=== PATIENT | female | born 1960 | race Caucasian/White ===

== ENCOUNTER 2016-07-30 15:56 | Emergency (ER) | payer BC, MEDICAID ==
[~2016-07-30] VITALS: Ht 157.5 cm; Wt 79.0 kg
[~2016-07-30 15:56] MED LIST: ACET1TAB40 PO; ASPI-676 PO; AZIT250T94 PO; BENA5TAB2 PO; CEPH-443 PO; CEPH500C PO; CIPR500T4 PO; CLOT45CR19 VAG; D-ME473S18 PO; FLUC150T17 PO; GLIP5TAB13 PO; HYDR-3498 PO; HYDR-3720 PO; IBUP-1542 PO; IBUP400T22 PO; MTF1000T PO; NAPR-260 PO; ONDA4TAB35 PO; ONDA4TAB8 PO; PHEN-538 PO
[2016-07-30 15:58] VITALS: Ht 157.5 cm; Wt 79.0 kg
[2016-07-30] MEDS ORDERED: FAMOTIDINE 20 MG TAB PO STA (17:41)
--- NOTE | 2016-07-30 17:45 | ERD ---
ER Documentation Chief Complaint Date/Time DATE: 07/30/16 TIME: 17:42 Chief Complaint dizziness , feels palpitations ,chest pain , nausea since last night HPI Patient is a 56-year-old female who presents with sudden onset, constant, dull, waxing and waning epigastric pain since 9 PM last night. She states that the pain has never completely resolved since it started. She states that the pain started while she was eating. She vomited once. She reports having one loose stool last night and a normal stool today. She denies dark stools. She denies fevers, shortness of breath. She reports an acid taste in her mouth. She reports being diagnosed with gallstones 4 months ago. ROS All systems reviewed and are negative except as per history of present illness. Medications Home Meds Active Scripts Famotidine* (Famotidine*) 20 Mg Tablet, 20 MG PO DAILY, #30 TAB Prov:HERMINIO RAMESH MD 07/30/16 Reported Medications Metformin Hcl* (Metformin Hcl*) 500 Mg Tablet, 500 MG PO BID, #30 TAB 07/30/16 Benazepril Hcl* (Benazepril Hcl*) 5 Mg Tablet, 5 MG PO DAILY, #30 TAB 07/30/16 Glipizide* (Glipizide*) 5 Mg Tablet, 5 MG PO BID, TAB 07/30/16 Aspirin* (Aspirin* Chew) 81 Mg Tab.chew, 81 MG PO DAILY, TAB.CHEW 07/30/16 Discontinued Reported Medications Aspirin (Ashley Child) 81 Mg Chew, 81 MG PO 03/11/11 Discontinued Scripts Dextromethorphan Hb-Promethazine Hcl (Promethazine DM Syrup) 473 Ml Syrup, 5 ML PO Q6H Y for COUGH, #4 OZ Prov:GERSON ENRIQUEZ MD 10/25/15 Ibuprofen* (Motrin*) 600 Mg Tab, 600 MG PO Q6, #15 TAB Prov:GERSON ENRIQUEZ MD 10/25/15 Azithromycin* (Zithromax*) 250 Mg Tablet, 250 MG PO .ZPACK DIRECTED, #6 TAB TAKE 500 MG (2 TABS) THE FIRST DAY THEN 250 MG (1 TAB) DAYS 2-5 Prov:GERSON ENRIQUEZ MD 10/25/15 Fluconazole* (Diflucan*) 150 Mg Tablet, 150 MG PO ONCE, #1 TAB Prov:DAPHNIE DUMONT NP 09/15/15 Clotrimazole* (Clotrimazole-7*) Vaginal Cream..g., 1 APPLIC VAG HS for 7 Days, EA Prov:DAPHNIE DUMONT NP 09/15/15 Hydrocodone Bit-Acetaminophen* ([place]*) 5-325 Mg Tab, 1 TAB PO Q6 Y for PAIN, # 20 TAB Prov:DAPHNIE DUMONT NP 09/15/15 Phenazopyridine Hcl* (Pyridium*) 200 Mg Tab, 200 MG PO TID Y for URINARY PAIN, # 6 TAB Prov:DAPHNIE DUMONT NP 09/15/15 Ciprofloxacin Hcl* (Ciprofloxacin Hcl*) 500 Mg Tablet, 500 MG PO BID for 7 Days , TAB Prov:DAPHNIE DUMONT NP 09/15/15 Acetaminophen-Codeine* (Acetaminophen-Cod #3*) 300-30 Mg Tab, 1 TAB PO Q4H Y for PAIN, #12 TAB Prov:GERSON ENRIQUEZ MD 07/25/15 Cephalexin* (Keflex*) 500 Mg Capsule, 500 MG PO QID for 7 Days, CAP Prov:GERSON ENRIQUEZ MD 07/25/15 Ondansetron Hcl* (Zofran* ODT) 4 mg -ODT Tab.disper, 4 MG PO Q6 Y for NAUSEA AND /OR VOMITING, #10 TAB Prov:DEJA WAGONER DO 05/08/15 Hydrocodone Bit-Acetaminophen* ([place]*) 7.5-325 Tablet, 1 TAB PO Q4H Y for PAIN , #14 TAB Prov:DEJA WAGONER DO 05/08/15 Ondansetron Hcl* (Zofran*) 4 Mg Tablet, 4 MG PO TID for NAUSEA AND/OR VOMITING, #12 TAB Prov:LEXA GOMEZ MD 04/25/15 Cephalexin* (Cephalexin*) 500 Mg Capsule, 500 MG PO TID, #21 CAP Prov:LEXA GOMEZ MD 04/25/15 Glipizide* (Glipizide*) 5 Mg Tablet, 5 MG PO BID, #30 TAB Prov:JUNIOR CHAPA PA-C 03/14/15 Metformin* (Glucophage*) 1,000 Mg Tablet, 1000 MG PO BID, #30 TAB Prov:JUNIOR CHAPA PA-C 03/14/15 Hydrocodone Bit-Acetaminophen* ([place]*) 5-325 Mg Tab, 1 TAB PO Q6 Y for PAIN, # 7 TAB Prov:ANNA OWLFE DO 10/03/14 Naproxen* (Naprosyn*) 500 Mg Tablet, 500 MG PO BID Y for PAIN AND/OR INFLAMMATION, #20 TAB Prov:ANNA WOLFE DO 10/03/14 Ibuprofen* (Ibuprofen*) 400 Mg Tablet, 400 MG PO Q6H Y for PAIN, #30 TAB Prov:TRIPP HUSAIN MD 09/02/14 Metformin* (Glucophage*) 1,000 Mg Tablet, 1000 MG PO BID, #60 TAB 4 Refills Prov:TRIPP HUSAIN MD 09/02/14 Glipizide* (Glipizide*) 5 Mg Tablet, 5 MG PO BID, #60 TAB 2 Refills Prov:TRIPP HUSAIN MD 09/02/14 Benazepril Hcl* (Benazepril Hcl*) 5 Mg Tab, 5 MG PO DAILY, #30 TAB 2 Refills Prov:TRIPP HUSAIN MD 09/02/14 Allergies Allergies: Coded Allergies: No Known Drug Allergies (Verified Allergy, Unknown, 09/14/15) PMhx/Soc Past medical history: Diabetes, hypertension Past surgical history: Hysterectomy Social history: Denies tobacco or alcohol History of Surgery: Yes (hysterectomy) Anesthesia Reaction: No Hx Neurological Disorder: No Hx Respiratory Disorders: No Hx Cardiac Disorders: Yes (HTN) Hx Psychiatric Problems: No Hx Miscellaneous Medical Probl: Yes (dm, htn) Hx Alcohol Use: No Hx Substance Use: No Hx Tobacco Use: No Smoking Status: Never smoker FmHx Family History: No coronary disease, No diabetes Physical Exam Vitals Vital Signs Date Time Temp Pulse Resp B/P Pulse Ox O2 Delivery O2 Flow Rate FiO2 07/30/16 20:14 79 16 106/65 100 Room Air 07/30/16 18:38 98.3 79 18 117/53 99 Room Air 07/30/16 15:58 97.9 90 18 135/63 98 Physical Exam Const: Alert, no acute distress Head: Atraumatic Eyes: Normal Conjunctiva, no pallor, no icterus ENT: Normal External Ears, Nose and Mouth. Moist mucous membranes Neck: Full range of motion..~ No meningismus. No JVD Resp: Clear to auscultation bilaterally, no wheezes, no rales Cardio: Regular rate and rhythm, no murmurs Abd: Soft, non distended. Mild tenderness in the epigastrium and right upper quadrant, no guarding, no rebound Skin: No petechiae or rashes Back: No midline or flank tenderness, no CVA tenderness Ext: No cyanosis, or edema Neur: Awake and alert Psych: Normal Mood and Affect Result Diagram: 07/30/16182007/30/161820 Results 24 hrs Laboratory Tests Test 07/30/16 18:21 07/30/16 19:40 White Blood Count 12.110^3/ul Red Blood Count 4.3210^6/ul Hemoglobin 13.4g/dl Hematocrit 39.8% Mean Corpuscular Volume 92.1fl Mean Corpuscular Hemoglobin 31.0pg Mean Corpuscular Hemoglobin Concent 33.7g/dl Red Cell Distribution Width 13.2% Platelet Count 01736^3/UL Mean Platelet Volume 11.4fl Neutrophils % 61.3% Lymphocytes % 28.2% Monocytes % 5.7% Eosinophils % 3.8% Basophils % 0.7% Nucleated Red Blood Cells % 0.0/100WBC Neutrophils # 7.410^3/ul Lymphocytes # 3.410^3/ul Monocytes # 0.710^3/ul Eosinophils # 0.510^3/ul Basophils # 0.110^3/ul Nucleated Red Blood Cells # 0.010^3/ul Prothrombin Time 12.7Sec Prothrombin Time Ratio 1.0 INR International Normalized Ratio 0.95 Sodium Level 143mmol/L Potassium Level 4.0mmol/L Chloride Level 106mmol/L Carbon Dioxide Level 26mmol/L Anion Gap 15 Blood Urea Nitrogen 14mg/dl Creatinine 0.60mg/dl Glucose Level 128mg/dl Calcium Level 9.6mg/dl Total Bilirubin 0.3mg/dl Direct Bilirubin 0.00mg/dl Indirect Bilirubin 0.3mg/dl Aspartate Amino Transf (AST/SGOT) 63IU/L Alanine Aminotransferase (ALT/SGPT) 111IU/L Alkaline Phosphatase 109IU/L Troponin I < 0.012ng/ml Total Protein 7.6g/dl Albumin 4.6g/dl Globulin 3.00g/dl Albumin/Globulin Ratio 1.53 Lipase 98U/L Serum HCG, Qualitative NEGATIVE Urine Color LT. YELLOW Urine Clarity CLEAR Urine pH 6.5 Urine Specific [place] 1.015 Urine Ketones NEGATIVE Urine Nitrite NEGATIVE Urine Bilirubin NEGATIVE Urine Urobilinogen 0.2 E.U./dL Urine Leukocyte Esterase TRACE Urine Microscopic RBC 2-5/HPF Urine Microscopic WBC 2-5/HPF Urine Squamous Epithelial Cells FEW Urine Bacteria RARE Urine Hemoglobin 1+ Urine Glucose NEGATIVE% Urine Total Protein NEGATIVE Current Medications Medications (Trade) Dose Ordered Sig/Jak Route PRN Reason Start Time Stop Time Status Last Admin Dose Admin Famotidine (Pepcid) 20 mg ONCE STAT PO 07/30/16 17:41 07/30/16 17:42 DC 07/30/16 17:41 Procedures/MDM EKG read by me: Time 1603, rate 84 Rhythm: Normal sinus [place]: Left axis deviation Intervals: Normal ST-T waves: no ischemic changes Ectopy: No Q-waves: No Impression: No evidence of ischemia or arrhythmia MDM: Patient is a 56-year-old female who presents with epigastric pain since last night. She reports symptoms that are highly suggestive of GERD. Her pain is been constant since onset. She has no evidence of ischemia on EKG and negative troponin. Her LFTs are unremarkable except for mild elevation of ALT greater than AST. Review of the patient's chart shows hepatic steatosis on a CT scan during a visit 2 years ago. The patient reports a history of gallstones , but on ultrasound has no evidence of gallstones or other biliary disease. The patient does have evidence of ongoing hepatic steatosis. The patient was given Pepcid in the ER, and states that her symptoms have completely resolved. Her symptoms are consistent with a GI cause. I have advised her to return to the ER for worsening symptoms and otherwise to follow-up with her PMD. I will prescribe her Pepcid. I have advised her to eat a low-fat diet. Departure Diagnosis: Primary Impression: Hepatic steatosis Additional Impressions: Gastritis Gastritis type: unspecified gastritis Chronicity: acute Gastritis bleeding : without bleeding Qualified Code: K29.00 - Acute gastritis without hemorrhage, unspecified gastritis type GERD (gastroesophageal reflux disease) Esophagitis presence: esophagitis presence not specified Qualified Code: K21.9 - Gastroesophageal reflux disease, esophagitis presence not specified Condition: HERMINIO Colbert MD Jul 30, 2016 17:45
[2016-07-30] MEDS ORDERED: ASPI81TA3 PO (17:48)
[2016-07-30] MEDS ORDERED: GLIP5TAB13 PO (17:48)
[2016-07-30] MEDS ORDERED: METF500T4 PO (17:50)
[2016-07-30] MEDS ORDERED: BENA5TAB2 PO (17:50)
--- NOTE | 2016-07-30 18:13 | RADRPT ---
PROCEDURE: XR Chest. CLINICAL INDICATION: Abdominal Pain. Chest pain. TECHNIQUE: Single frontal chest x-ray. COMPARISON: 04/25/2015 FINDINGS: The lungs are clear of acute infiltrates, edema, effusions, or masses.. The cardiomediastinal silho uette is unremarkable. The osseous structures are intact. IMPRESSION: No acute cardiopulmonary disease. RPTAT: QQ .Henry Dozier MD, MD Date Time Electronically viewed and signed by .Henry Dozier MD, on 07/30/2016 18:12 .L/
--- NOTE | 2016-07-30 18:19 | RADRPT ---
PROCEDURE: US Abdomen (right upper quadrant). CLINICAL INDICATION: Right upper quadrant pain TECHNIQUE: Multiple real-time longitudinal and transverse images of the right upper quadrant of th e abdomen were acquired utilizing a curved array transducer. Images were reviewed on a high-resoluti on PACS workstation. COMPARISON: None FINDINGS: The liver is normal in size and fatty in echogenicity without focal mass or intrahepatic biliary dil atation. The gallbladder is normal. The common bile duct measures 3.5 mm in maximal dimension. Th e visualized portions of the pancreas are unremarkable with obscuration of the tail of the pancreas. No free fluid is identified. The right kidney measures 11.3 cm in length. There is no evidence of obstructive uropathy or urolith iasis. No renal masses seen. Visualized portions aorta and inferior vena cava are normal. IMPRESSION: Hepatic steatosis. Otherwise unremarkable right upper quadrant ultrasound. RPTAT: QQ .Henry Dozier MD, MD Date Time Electronically viewed and signed by .Henry Dozier MD, on 07/30/2016 18:19 .L/
[2016-07-30 18:38] VITALS: TEMP 98.3
[2016-07-30 18:43] LABS: ADD SCAN DIFF NO
[2016-07-30 18:45] LABS: BASOPHIL # 0.1 10^3/ul (0.0-0.1); BASOPHILS % 0.7 % (0.0-2.0); EOSINOPHILS # 0.5 10^3/ul (0.0-0.5); EOSINOPHILS % 3.8 % (0.0-7.0); HEMATOCRIT 39.8 % (37.0-47.0); HEMOGLOBIN 13.4 g/dl (12.0-16.0); LYMPHOCYTES # 3.4 10^3/ul (0.8-2.9); LYMPHOCYTES % 28.2 % (15.0-51.0); MEAN CORPUSCULAR HGB CONC 33.7 g/dl (32.0-37.0); MEAN CORPUSCULAR VOLUME 92.1 fl (82.0-101.0); MEAN PLATELET VOLUME 11.4 fl (7.4-10.4); MONOCYTE # 0.7 10^3/ul (0.3-0.9); MONOCYTES % 5.7 % (0.0-11.0); NEUTROPHIL # 7.4 10^3/ul (1.6-7.5); NEUTROPHILS % 61.3 % (39.0-77.0); PLATELET COUNT 315 10^3/UL (140-415); RED BLOOD COUNT 4.32 10^6/ul (4.20-5.40); RED CELL DISTRIBUTION WIDTH 13.2 % (11.5-14.5); WHITE BLOOD COUNT 12.1 10^3/ul (4.8-10.8)
[2016-07-30 19:04] LABS: INR 0.95; PROTIME 12.7 Sec (12.2-14.2)
[2016-07-30 19:09] LABS: ALANINE AMINOTRANSFERASE 111 IU/L (13-69); ALBUMIN 4.6 g/dl (3.3-4.9); ALBUMIN/GLOBULIN RATIO 1.53; ALKALINE PHOSPHATASE 109 IU/L (42-121); ANION GAP 15 (8-16); ASPARTATE AMINO TRANSFERASE 63 IU/L (15-46); BILIRUBIN,INDIRECT 0.3 mg/dl (0-1.1); BILIRUBIN,TOTAL 0.3 mg/dl (0.2-1.3); BLOOD UREA NITROGEN 14 mg/dl (7-20); CALCIUM 9.6 mg/dl (8.4-10.2); CARBON DIOXIDE 26 mmol/L (21-31); CHLORIDE 106 mmol/L (97-110); GLUCOSE 128 mg/dl (70-220); SODIUM 143 mmol/L (135-144); TOTAL PROTEIN 7.6 g/dl (6.1-8.1)
[2016-07-30 19:24] LABS: TROPONIN-I < 0.012 ng/ml (0.00-0.12)
[2016-07-30] MEDS ORDERED: FAMO20TA18 PO (19:43)
[2016-07-30 19:54] LABS: ADD UMIC YES; URINE BILIRUBIN (Dip) NEGATIVE (NEGATIVE); URINE BLOOD (Dip) 1+ (NEGATIVE); URINE COLOR LT. YELLOW (YELLOW); URINE GLUCOSE (Dip) NEGATIVE (NEGATIVE); URINE KETONES (Dip) NEGATIVE (NEGATIVE); URINE LEUKOCYTE ESTERASE (Dip) TRACE (NEGATIVE); URINE NITRITE (Dip) NEGATIVE (NEGATIVE); URINE TOTAL PROTEIN (Dip) NEGATIVE (NEGATIVE); URINE UROBILINOGEN (Dip) 0.2 E.U./dL (0.1-1.0)
[2016-07-30 20:14] VITALS: BP 106/65; PULSE 79; RESP 16
[2016-07-30 20:25] LABS: BACTERIA,URINE RARE; SQUAMOUS EPITHELIAL CELL,UR FEW
== END 2016-07-30 20:16 | disposition home or self-care (01) ==
LOC: E/R 15:56
DX: K76.0 Fatty (change of) liver, not elsewhere classified (principal); K29.00 Acute gastritis without bleeding; K21.9 Gastro-esophageal reflux disease without esophagitis
CPT/HCPCS: 71010; 76705; 80053; 81001; 83690; 84484; 84703; 85025; 85610; Z7610; 36415; 93005

== ENCOUNTER 2016-08-03 18:13 | Emergency (ER) | payer MEDICAID ==
[~2016-08-03] VITALS: Ht 160 cm; Wt 79.5 kg
[~2016-08-03 18:13] MED LIST changes: -ACET1TAB40 PO; -ASPI-676 PO; +ASPI81TA3 PO; -AZIT250T94 PO; -CEPH-443 PO; -CEPH500C PO; -CIPR500T4 PO; -CLOT45CR19 VAG; -D-ME473S18 PO; +FAMO20TA18 PO; -FLUC150T17 PO; -HYDR-3498 PO; -HYDR-3720 PO; -IBUP-1542 PO; -IBUP400T22 PO; +METF500T4 PO; -MTF1000T PO; -NAPR-260 PO; -ONDA4TAB35 PO; -ONDA4TAB8 PO; -PHEN-538 PO
[2016-08-03 18:26] VITALS: Ht 160 cm; Wt 79.5 kg
[2016-08-03] MEDS ORDERED: KETOROLAC 15 MG INJ IV STA (20:13)
--- NOTE | 2016-08-03 20:13 | ERD ---
ER Documentation Chief Complaint Date/Time DATE: 08/03/16 TIME: 20:13 Chief Complaint abd pain, cough x 3 days, headache , insomnia HPI 56-year-old female history of diabetes, hypertension and dyslipidemia presents the ED with multiple symptoms including generalized body pain, abdominal pain, sore throat, cough, headache and insomnia. Patient with multiple previous visits for similar symptoms most recently 07/30/2016. Ongoing, mild, burning, epigastric abdominal pain without nausea, vomiting, diarrhea, constipation, hematemesis, hematochezia or melanotic stools. Generalized, gradual onset, mild headache which he has chronically. Nonproductive cough but no shortness of breath, orthopnea or exertional dyspnea. Denies leg pain or swelling. Mild odynophagia but no dysphagia. No rhinorrhea or nasal congestion. No fevers or chills. ROS All systems reviewed and are negative except as per history of present illness. Medications Home Meds Reported Medications Simvastatin* (Zocor*) 5 Mg Tablet, 5 MG PO QHS, #30 TAB 08/03/16 Metformin Hcl* (Metformin Hcl*) 500 Mg Tablet, 500 MG PO BID, #30 TAB 07/30/16 Benazepril Hcl* (Benazepril Hcl*) 5 Mg Tablet, 5 MG PO DAILY, #30 TAB 07/30/16 Glipizide* (Glipizide*) 5 Mg Tablet, 5 MG PO BID, TAB 07/30/16 Aspirin* (Aspirin* Chew) 81 Mg Tab.chew, 81 MG PO DAILY, TAB.CHEW 07/30/16 Discontinued Reported Medications Aspirin (Ashley Child) 81 Mg Chew, 81 MG PO 03/11/11 Discontinued Scripts Famotidine* (Famotidine*) 20 Mg Tablet, 20 MG PO DAILY, #30 TAB Prov:HERMINIO RAMESH MD 07/30/16 Dextromethorphan Hb-Promethazine Hcl (Promethazine DM Syrup) 473 Ml Syrup, 5 ML PO Q6H Y for COUGH, #4 OZ Prov:GERSON ENRIQUEZ MD 10/25/15 Ibuprofen* (Motrin*) 600 Mg Tab, 600 MG PO Q6, #15 TAB Prov:GERSON ENRIQUEZ MD 10/25/15 Azithromycin* (Zithromax*) 250 Mg Tablet, 250 MG PO .DianaPACK DIRECTED, #6 TAB TAKE 500 MG (2 TABS) THE FIRST DAY THEN 250 MG (1 TAB) DAYS 2-5 Prov:GERSON ENRIQUEZ MD 10/25/15 Fluconazole* (Diflucan*) 150 Mg Tablet, 150 MG PO ONCE, #1 TAB Prov:DAPHNIE DUMONT NP 09/15/15 Clotrimazole* (Clotrimazole-7*) Vaginal Cream..g., 1 APPLIC VAG HS for 7 Days, EA Prov:DAPHNIE DUMONT NP 09/15/15 Hydrocodone Bit-Acetaminophen* ([place]*) 5-325 Mg Tab, 1 TAB PO Q6 Y for PAIN, # 20 TAB Prov:DAPHNIE DUMONT NP 09/15/15 Phenazopyridine Hcl* (Pyridium*) 200 Mg Tab, 200 MG PO TID Y for URINARY PAIN, # 6 TAB Prov:DAPHNIE DUMONT NP 09/15/15 Ciprofloxacin Hcl* (Ciprofloxacin Hcl*) 500 Mg Tablet, 500 MG PO BID for 7 Days , TAB Prov:DAPHNIE DUMONT NP 09/15/15 Acetaminophen-Codeine* (Acetaminophen-Cod #3*) 300-30 Mg Tab, 1 TAB PO Q4H Y for PAIN, #12 TAB Prov:GERSON ENRIQUEZ MD 07/25/15 Cephalexin* (Keflex*) 500 Mg Capsule, 500 MG PO QID for 7 Days, CAP Prov:GERSON ENRIQUEZ MD 07/25/15 Ondansetron Hcl* (Zofran* ODT) 4 mg -ODT Tab.disper, 4 MG PO Q6 Y for NAUSEA AND /OR VOMITING, #10 TAB Prov:PAULINA WAGONERSTWENCESLAOS ALacy DO 05/08/15 Hydrocodone Bit-Acetaminophen* ([place]*) 7.5-325 Tablet, 1 TAB PO Q4H Y for PAIN , #14 TAB Prov:PAULINA WAGONERSTOLOS A. DO 05/08/15 Ondansetron Hcl* (Zofran*) 4 Mg Tablet, 4 MG PO TID for NAUSEA AND/OR VOMITING, #12 TAB Prov:LEXA GOMEZ MD 04/25/15 Cephalexin* (Cephalexin*) 500 Mg Capsule, 500 MG PO TID, #21 CAP Prov:LEXA GOMEZ MD 04/25/15 Glipizide* (Glipizide*) 5 Mg Tablet, 5 MG PO BID, #30 TAB Prov:JUNIOR CHAPA PA-C 03/14/15 Metformin* (Glucophage*) 1,000 Mg Tablet, 1000 MG PO BID, #30 TAB Prov:JUNIOR CHAPA PA-C 03/14/15 Hydrocodone Bit-Acetaminophen* ([place]*) 5-325 Mg Tab, 1 TAB PO Q6 Y for PAIN, # 7 TAB Prov:ANNA WOLFE DO 10/03/14 Naproxen* (Naprosyn*) 500 Mg Tablet, 500 MG PO BID Y for PAIN AND/OR INFLAMMATION, #20 TAB Prov:ANNA WOLFE DO 10/03/14 Ibuprofen* (Ibuprofen*) 400 Mg Tablet, 400 MG PO Q6H Y for PAIN, #30 TAB Prov:TRIPP HUSAIN MD 09/02/14 Metformin* (Glucophage*) 1,000 Mg Tablet, 1000 MG PO BID, #60 TAB 4 Refills Prov:TRIPP HUSAIN MD 09/02/14 Glipizide* (Glipizide*) 5 Mg Tablet, 5 MG PO BID, #60 TAB 2 Refills Prov:TRIPP HUSAIN MD 09/02/14 Benazepril Hcl* (Benazepril Hcl*) 5 Mg Tab, 5 MG PO DAILY, #30 TAB 2 Refills Prov:TRIPP HUSAIN MD 09/02/14 Allergies Allergies: Coded Allergies: No Known Drug Allergies (Verified Allergy, Unknown, 08/03/16) PMhx/Soc Reviewed in chart. History of Surgery: Yes (hysterectomy) Anesthesia Reaction: No Hx Neurological Disorder: No Hx Respiratory Disorders: No Hx Cardiac Disorders: Yes (HTN) Hx Psychiatric Problems: No Hx Miscellaneous Medical Probl: Yes (dm, htn) Hx Alcohol Use: No Hx Substance Use: No Hx Tobacco Use: No FmHx Reviewed in chart. As per HPI. No stroke or cancer Physical Exam Vitals Vital Signs Date Time Temp Pulse Resp B/P Pulse Ox O2 Delivery O2 Flow Rate FiO2 08/03/16 18:26 99.3 105 20 125/71 97 Physical Exam Const: Alert, anxious Head: Atraumatic Eyes: Normal Conjunctiva ENT: Normal External Ears, Nose and Mouth. Pharynx is clear without erythema or exudate. Neck: Full range of motion. Nontender. No JVD. No lymphadenopathy or tenderness. Resp: Clear to auscultation bilaterally Cardio: Regular rate and rhythm, no murmurs Abd: Soft, obese. Mild epigastric tenderness but no rebound or guarding. No masses or abnormal pulsations. Bowel sounds are normal. Skin: No petechiae or rashes Back: No midline or flank tenderness Ext: No cyanosis, or edema Neur: Awake and alert Psych: Patient appears anxious but not depressed. Result Diagram: 08/03/16202408/03/162024 Results 24 hrs Laboratory Tests Test 08/03/16 20:22 08/03/16 20:25 Urine Color LT. YELLOW Urine Clarity CLEAR Urine pH 7.5 Urine Specific [place] 1.010 Urine Ketones NEGATIVE Urine Nitrite NEGATIVE Urine Bilirubin NEGATIVE Urine Urobilinogen 0.2 E.U./dL Urine Leukocyte Esterase NEGATIVE Urine Microscopic RBC 0-2/HPF Urine Microscopic WBC 0-2/HPF Urine Squamous Epithelial Cells FEW Urine Bacteria RARE Urine Hemoglobin 1+ Urine Glucose NEGATIVE% Urine Total Protein NEGATIVE White Blood Count 11.010^3/ul Red Blood Count 4.5310^6/ul Hemoglobin 13.5g/dl Hematocrit 41.3% Mean Corpuscular Volume 91.2fl Mean Corpuscular Hemoglobin 29.8pg Mean Corpuscular Hemoglobin Concent 32.7g/dl Red Cell Distribution Width 13.2% Platelet Count 04608^3/UL Mean Platelet Volume 11.1fl Neutrophils % 60.5% Lymphocytes % 23.6% Monocytes % 9.1% Eosinophils % 5.8% Basophils % 0.5% Nucleated Red Blood Cells % 0.0/100WBC Neutrophils # 6.710^3/ul Lymphocytes # 2.610^3/ul Monocytes # 1.010^3/ul Eosinophils # 0.610^3/ul Basophils # 0.110^3/ul Nucleated Red Blood Cells # 0.010^3/ul Sodium Level 138mmol/L Potassium Level 4.1mmol/L Chloride Level 101mmol/L Carbon Dioxide Level 27mmol/L Anion Gap 14 Blood Urea Nitrogen 14mg/dl Creatinine 0.65mg/dl Glucose Level 136mg/dl Calcium Level 9.5mg/dl Total Bilirubin 0.5mg/dl Direct Bilirubin 0.00mg/dl Indirect Bilirubin 0.5mg/dl Aspartate Amino Transf (AST/SGOT) 69IU/L Alanine Aminotransferase (ALT/SGPT) 111IU/L Alkaline Phosphatase 112IU/L Troponin I < 0.012ng/ml Total Protein 7.8g/dl Albumin 4.9g/dl Globulin 2.90g/dl Albumin/Globulin Ratio 1.68 Lipase 128U/L Current Medications Medications (Trade) Dose Ordered Sig/Jak Route PRN Reason Start Time Stop Time Status Last Admin Dose Admin Ketorolac Tromethamine (Toradol) 15 mg ONCE STAT IV 08/03/16 20:13 08/03/16 20:14 DC 08/03/16 20:22 PROCEDURE: CHEST - 1 VIEW CLINICAL INDICATION: 56-year-old female with chest/abdominal pain. TECHNIQUE: A single frontal AP upright view of the chest was performed. The images were reviewed on a PACS workstation. COMPARISON: Chest x-ray July 30, 2016. FINDINGS: The cardiomediastinal silhouette has a normal appearance. There is no evidence for an infiltrate. There is no evidence for congestive heart failure. There is no evidence for pneumothorax. The osseous structures are intact. IMPRESSION: No evidence for active cardiopulmonary disease. .Jamal Baca MD, MD Date Time Electronically viewed and signed by .Jamal Baca MD, on 08/03/2016 22:12 .M/ EKG: Time:20:33. Sinus rhythm. Ventricular rate 93. Left axis deviation. No acute ST segment elevation or depression. Normal MA QRS. No ectopy. EP interpretation: Abnormal ECG Procedures/MDM DOCUMENTS REVIEWED: ED nurse, prior ED, prior records MEDICAL DECISION MAKIN-year-old female history of diabetes, hypertension and dyslipidemia presents the ED with multiple symptoms including generalized body pain, abdominal pain, sore throat, cough, headache and insomnia. ED workup is unremarkable. Abdominal exam is benign without rebound, guarding or other signs of peritonitis. Recent imaging studies were unremarkable. Lungs are clear without evidence of bronchospasm and chest x-ray reveals no evidence of infiltrate, effusion or pulmonary vascular congestion. Nonspecific headache of uncertain etiology. No focal deficit or other signs of CVA or TIA. This is the patient's baseline headache which is gradual onset, not described of the worst headache of her life or concerning for subarachnoid hemorrhage, mass or hydrocephalus hence neuroimaging is deferred. No signs of meningitis or encephalitis. Patient complains of odynophagia but exam is unremarkable. A supratentorial component to her symptoms including depression is considered. She denies any suicidality or homicidality. Additional stressors include recent loss of her medical insurance coverage. Stable for discharge precautionary instructions and outpatient follow-up as counseled. Counseled patient and family regarding diagnostic workup, diagnosis and need for followup. Understands to return to ED if symptoms recur, worsen or any other concerns. 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
[2016-08-03] MEDS ORDERED: SIMV5TAB31 PO (20:31)
[2016-08-03 20:37] LABS: ADD SCAN DIFF NO
[2016-08-03 20:40] LABS: BASOPHIL # 0.1 10^3/ul (0.0-0.1); BASOPHILS % 0.5 % (0.0-2.0); EOSINOPHILS # 0.6 10^3/ul (0.0-0.5); EOSINOPHILS % 5.8 % (0.0-7.0); HEMATOCRIT 41.3 % (37.0-47.0); HEMOGLOBIN 13.5 g/dl (12.0-16.0); LYMPHOCYTES # 2.6 10^3/ul (0.8-2.9); LYMPHOCYTES % 23.6 % (15.0-51.0); MEAN CORPUSCULAR HEMOGLOBIN 29.8 pg (29.0-33.0); MEAN CORPUSCULAR HGB CONC 32.7 g/dl (32.0-37.0); MEAN CORPUSCULAR VOLUME 91.2 fl (82.0-101.0); MEAN PLATELET VOLUME 11.1 fl (7.4-10.4); MONOCYTES % 9.1 % (0.0-11.0); NEUTROPHIL # 6.7 10^3/ul (1.6-7.5); NEUTROPHILS % 60.5 % (39.0-77.0); PLATELET COUNT 300 10^3/UL (140-415); RED BLOOD COUNT 4.53 10^6/ul (4.20-5.40); RED CELL DISTRIBUTION WIDTH 13.2 % (11.5-14.5)
[2016-08-03 20:53] LABS: ADD UMIC YES; URINE BILIRUBIN (Dip) NEGATIVE (NEGATIVE); URINE BLOOD (Dip) 1+ (NEGATIVE); URINE COLOR LT. YELLOW (YELLOW); URINE GLUCOSE (Dip) NEGATIVE (NEGATIVE); URINE KETONES (Dip) NEGATIVE (NEGATIVE); URINE LEUKOCYTE ESTERASE (Dip) NEGATIVE (NEGATIVE); URINE NITRITE (Dip) NEGATIVE (NEGATIVE); URINE TOTAL PROTEIN (Dip) NEGATIVE (NEGATIVE); URINE UROBILINOGEN (Dip) 0.2 E.U./dL (0.1-1.0)
[2016-08-03 20:58] LABS: ALANINE AMINOTRANSFERASE 111 IU/L (13-69); ALBUMIN 4.9 g/dl (3.3-4.9); ALBUMIN/GLOBULIN RATIO 1.68; ALKALINE PHOSPHATASE 112 IU/L (42-121); ANION GAP 14 (8-16); ASPARTATE AMINO TRANSFERASE 69 IU/L (15-46); BILIRUBIN,INDIRECT 0.5 mg/dl (0-1.1); BILIRUBIN,TOTAL 0.5 mg/dl (0.2-1.3); BLOOD UREA NITROGEN 14 mg/dl (7-20); CALCIUM 9.5 mg/dl (8.4-10.2); CARBON DIOXIDE 27 mmol/L (21-31); CHLORIDE 101 mmol/L (97-110); CREATININE 0.65 mg/dl (0.44-1.00); GLUCOSE 136 mg/dl (70-220); POTASSIUM 4.1 mmol/L (3.5-5.1); SODIUM 138 mmol/L (135-144); TOTAL PROTEIN 7.8 g/dl (6.1-8.1)
[2016-08-03 21:06] LABS: BACTERIA,URINE RARE; SQUAMOUS EPITHELIAL CELL,UR FEW; URINE RBCS 0-2 /HPF (0)
[2016-08-03 21:11] LABS: TROPONIN-I < 0.012 ng/ml (0.00-0.12)
--- NOTE | 2016-08-03 22:13 | RADRPT ---
PROCEDURE: CHEST - 1 VIEW CLINICAL INDICATION: 56-year-old female with chest/abdominal pain. TECHNIQUE: A single frontal AP upright view of the chest was performed. The images were reviewed on a PACS workstation. COMPARISON: Chest x-ray July 30, 2016. FINDINGS: The cardiomediastinal silhouette has a normal appearance. There is no evidence for an infiltrate. There is no evidence for congestive heart failure. There is no evidence for pneumothorax. The osseou s structures are intact. IMPRESSION: No evidence for active cardiopulmonary disease. .Jamal Baca MD, MD Date Time Electronically viewed and signed by .Jamal Baca MD, on 08/03/2016 22:12 .M/
[2016-08-03 23:01] VITALS: BP 118/81; PULSE 81; RESP 18
== END 2016-08-03 23:34 | disposition home or self-care (01) ==
LOC: E/R 18:13
DX: E11.9 Type 2 diabetes mellitus without complications (principal); I10 Essential (primary) hypertension; R05 Cough; R51 Headache; G47.00 Insomnia, unspecified; J02.9 Acute pharyngitis, unspecified; Z79.82 Long term (current) use of aspirin; Z79.84 Long term (current) use of oral hypoglycemic drugs
CPT/HCPCS: 71010; 80053; 81001; 83690; 84484; 85025; 93005; J1885; 36415; 96374

== ENCOUNTER 2016-10-12 18:19 | Emergency (ER) | payer MEDICAID ==
[~2016-10-12] VITALS: Wt 170.0 kg
[~2016-10-12 18:19] MED LIST changes: -FAMO20TA18 PO; +SIMV5TAB31 PO
[2016-10-12 18:27] VITALS: Wt 170.0 kg
[2016-10-12] MEDS ORDERED: KETOROLAC 15 MG INJ IM STA (18:52)
--- NOTE | 2016-10-12 18:52 | ERD ---
ER Documentation Chief Complaint Date/Time DATE: 10/12/16 TIME: 18:50 Chief Complaint back pain HPI This 56-year-old female presents to emergency department with complaint of sudden onset of left sided back pain radiating to left leg sx started today w/o injury. Patient reports dysuria. denies alteration in bowel or bladder, patient reports history of diabetes. ROS All systems reviewed and are negative except as per history of present illness. Medications Home Meds Active Scripts Hydrocodone/Acetaminophen (Brewster 5-325 Tablet) 1 Each Tablet, 1 TAB PO Q6H Y for PAIN, #7 TAB Prov:KAYCEE,PIERO 10/12/16 Reported Medications Simvastatin* (Zocor*) 5 Mg Tablet, 5 MG PO QHS, #30 TAB 08/03/16 Metformin Hcl* (Metformin Hcl*) 500 Mg Tablet, 500 MG PO BID, #30 TAB 07/30/16 Benazepril Hcl* (Benazepril Hcl*) 5 Mg Tablet, 5 MG PO DAILY, #30 TAB 07/30/16 Glipizide* (Glipizide*) 5 Mg Tablet, 5 MG PO BID, TAB 07/30/16 Aspirin* (Aspirin* Chew) 81 Mg Tab.chew, 81 MG PO DAILY, TAB.CHEW 07/30/16 Allergies Allergies: Coded Allergies: No Known Drug Allergies (Verified Allergy, Unknown, 08/03/16) PMhx/Soc History of Surgery: Yes (hysterectomy) Anesthesia Reaction: No Hx Neurological Disorder: No Hx Respiratory Disorders: No Hx Cardiac Disorders: Yes (HTN, HTPERLIPIDS) Hx Psychiatric Problems: No Hx Miscellaneous Medical Probl: Yes (dm) Hx Alcohol Use: No Hx Substance Use: No Hx Tobacco Use: No Smoking Status: Never smoker Physical Exam Vitals Vital Signs Date Time Temp Pulse Resp B/P Pulse Ox O2 Delivery O2 Flow Rate FiO2 10/12/16 18:27 98.3 91 20 176/68 97 Vitals stable, triage notes reviewed, blood pressure noted to be 176/68, patient reports she has hypertension on medication. Physical Exam Const: Well-nourished well-appearing well-hydrated no acute distress Head: Eyes: ENT: Normal External Ears, Nose and Mouth mucous membranes moist. Neck: Resp: Respirations even and unlabored no respiratory distress Cardio: Abd: Soft, non tender, non distended. Normal bowel sounds Skin: Back: Back Exam: Skin: No bruising or rash Compartments: Soft Motor: Normal flexion and extension of bilateral hip, left IT band tightness pain with abduction, straight leg rises negative at 90 bilateral Sensation: Intact to light touch throughout Bones: No midline TTP Ext: Neur: Awake and alert Psych: Normal Mood and Affect Result Diagram: 10/12/16202410/12/162024 Results 24 hrs Laboratory Tests Test 10/12/16 19:10 10/12/16 19:16 10/12/16 20:25 Urine Color YELLOW Urine Clarity CLEAR Urine pH 5.0 Urine Specific [place] 1.031 Urine Ketones NEGATIVEmg/dL Urine Nitrite NEGATIVEmg/dL Urine Bilirubin NEGATIVEmg/dL Urine Urobilinogen NEGATIVEmg/dL Urine Leukocyte Esterase NEGATIVELeu/ul Urine Microscopic RBC 2/HPF Urine Microscopic WBC 2/HPF Urine Squamous Epithelial Cells FEW/HPF Urine Bacteria FEW/HPF Urine Hemoglobin 1+mg/dL Urine Glucose 3+mg/dL Urine Total Protein NEGATIVEmg/dl Bedside Urine pH (LAB) 5.5 Bedside Urine Protein (LAB) Negative Bedside Urine Glucose (UA) 0.50% Bedside Urine Ketones (LAB) Negative Bedside Urine Blood 2+ Bedside Urine Nitrite (LAB) Negative Bedside Urine Leukocyte Esterase (L Negative White Blood Count 13.110^3/ul Red Blood Count 4.4410^6/ul Hemoglobin 13.4g/dl Hematocrit 40.3% Mean Corpuscular Volume 90.8fl Mean Corpuscular Hemoglobin 30.2pg Mean Corpuscular Hemoglobin Concent 33.3g/dl Red Cell Distribution Width 13.0% Platelet Count 20139^3/UL Mean Platelet Volume 11.2fl Neutrophils % 64.2% Lymphocytes % 25.4% Monocytes % 6.2% Eosinophils % 3.1% Basophils % 0.8% Nucleated Red Blood Cells % 0.0/100WBC Neutrophils # (Manual) 810^3/ul Lymphocytes # 3.310^3/ul Monocytes # 0.810^3/ul Eosinophils # 0.410^3/ul Basophils # 0.110^3/ul Nucleated Red Blood Cells # 0.010^3/ul Sodium Level 137mmol/L Potassium Level 4.0mmol/L Chloride Level 99mmol/L Carbon Dioxide Level 27mmol/L Anion Gap 15 Blood Urea Nitrogen 15mg/dl Creatinine 0.97mg/dl Glucose Level 312mg/dl Calcium Level 9.3mg/dl Total Bilirubin 0.4mg/dl Direct Bilirubin 0.00mg/dl Indirect Bilirubin 0.4mg/dl Aspartate Amino Transf (AST/SGOT) 87IU/L Alanine Aminotransferase (ALT/SGPT) 155IU/L Alkaline Phosphatase 136IU/L Total Protein 7.9g/dl Albumin 4.5g/dl Globulin 3.40g/dl Albumin/Globulin Ratio 1.32 Current Medications Medications (Trade) Dose Ordered Sig/Jak Route PRN Reason Start Time Stop Time Status Last Admin Dose Admin Diazepam (Valium) 5 mg ONCE ONCE PO 10/12/16 19:00 10/12/16 19:01 DC 10/12/16 19:04 Ketorolac Tromethamine (Toradol) 15 mg ONCE STAT IM 10/12/16 18:52 10/12/16 18:54 DC 10/12/16 19:04 Acetaminophen/ Hydrocodone Bitart (Brewster (5/325)) 1 tab ONCE ONCE PO 10/12/16 20:30 10/12/16 20:31 DC 10/12/16 20:28 Interpretation text CBC shows no evidence of hemorrhage or infection WBC is elevated at 13.1 Chemistry shows no evidence of significant electrolyte abnormalities or renal insufficiency, nonfasting blood sugar 312 Liver function tests shows no evidence of acute biliary or hepatic dysfunction Procedures/MDM POCEDURE: CT Abdomen and Pelvis without contrast. CLINICAL INDICATION: Dysuria and back pain. TECHNIQUE: A CT scan of the abdomen and pelvis was performed without intravenous contrast. Coronal and sagittal reformatted images were generated. Images were reviewed on a high-resolution PACS workstation. CTDIvol: 18.69 mGy. DLP: 1001.17 mGy-cm. One or more of the following dose reduction techniques were used: - Automated exposure control. - Adjustment of the mA and/or kV according to patient size. - Use of iterative reconstruction technique. COMPARISON: 09/14/2015 FINDINGS: The lung bases are clear. Evaluation of the abdominal and pelvic viscera is limited by the lack of oral and intravenous contrast. The liver is diffusely hypodense, consistent with fatty infiltration. The gallbladder is normal in appearance. The common bile duct is not dilated. The spleen is not enlarged. No pancreatic lesion is identified and there is no pancreatic ductal dilatation. The adrenal glands are unremarkable. The kidneys are normal in size. There is no perinephric fat stranding. No hydronephrosis is seen. No urinary stone is identified. There is a 1.8 cm left renal cyst. The small and large bowel are normal in caliber. There is no bowel wall thickening. There is an appendicolith in the distal appendiceal lumen but no appendiceal inflammation. The urinary bladder is unremarkable. The patient is status post hysterectomy. No adnexal mass is seen. No lymphadenopathy is identified. There is no ascites. No pneumoperitoneum is seen. There are no arterial calcifications. No suspicious osseous lesion is idenitified. IMPRESSION: 1. No inflammation, mass, or lymphadenopathy. 2. Normal appendix. 3. No obstructive uropathy or urinary stone. 4. Fatty infiltration of the liver. 5. Status post hysterectomy. Electronically viewed and signed by .Nahid Moore MD, MD on 10/12/2016 21:36 This pleasant 56-year-old female presents to emergency department with left- sided back pain and dysuria. Patient reports a sudden onset today without known injury. Patient is a diabetic denies any history of renal insufficiency or diabetic neuropathy. Patient shows no signs of cauda equina syndrome, CVA, TIA or pyelonephritis. Emergency course includes pain treatment with 15 mg of intramuscular Toradol, Valium 5 mg. Patient reassessed reports that she still feels pain in the middle of her back, Brewster 5/325 mg given. Patient urinalysis is positive for +2 microscopic hematuria, without nitrates or leukocytosis. Status post hysterectomy, denies vaginal bleeding. Findings suspicious for renal calculi, or renal insufficiency or hydronephrosis. Patient has further workup with laboratory testing, WBCs slightly elevated 13.1, BUN and creatinine are normal no evidence of renal dysfunction. Nonfasting blood sugar elevated. Noncontrast CT of abdomen and pelvis documents the kidneys are normal size there is no perinephritic fat stranding. No hydronephrosis is seen. No urinary stone is identified. There is a 1.8 cm left renal cyst. Impression is no inflammation, mass or lymphadenopathy, normal appendix, no obstructive uropathy or urinary stones. Fatty liver, status post hysterectomy. Patient will be discharged home with Brewster 5/325 7 tabs, instructions to follow-up with primary care physician for diabetic teaching, weight loss, and low impact exercise activity. Patient is stable with no new complaints during ER course, clinically there is no current evidence to suggest meningitis, sepsis, acute abdomen, acute coronary syndromes, pulmonary embolism or any other emergent condition appearing to require further evaluation or hospitalization. I feel the patient is stable for discharge at this time. I have discussed results, examination findings, the treatment plan with the patient and family present prior to discharge. Indications for emergent reevaluation, side effects of medication were also discussed. All questions were answered. Patient verbalizes understanding and agrees with plan of care. Departure Diagnosis: Primary Impression: Back pain Back pain location: low back pain Chronicity: unspecified Back pain laterality: left Sciatica presence: with sciatica Sciatica laterality: sciatica of left side Qualified Code: M54.42 - Left-sided low back pain with left-sided sciatica, unspecified chronicity Additional Impression: Microscopic hematuria PIERO BENOIT Oct 12, 2016 18:50
[2016-10-12] MEDS ORDERED: DIAZEPAM 5 MG TAB PO ONE (19:00)
[2016-10-12 19:11] LABS: URINE BLOOD (Dip) POC 2+ (NEGATIVE)
[2016-10-12] MEDS ORDERED: HYDROCODONE/APAP (5/325) TAB PO ONE (20:30)
[2016-10-12 20:38] LABS: BASOPHIL # 0.1 10^3/ul (0.0-0.1); BASOPHILS % 0.8 % (0.0-2.0); EOSINOPHILS # 0.4 10^3/ul (0.0-0.5); EOSINOPHILS % 3.1 % (0.0-7.0); HEMATOCRIT 40.3 % (37.0-47.0); HEMOGLOBIN 13.4 g/dl (12.0-16.0); LYMPHOCYTES # 3.3 10^3/ul (0.8-2.9); LYMPHOCYTES % 25.4 % (15.0-51.0); MEAN CORPUSCULAR HEMOGLOBIN 30.2 pg (29.0-33.0); MEAN CORPUSCULAR HGB CONC 33.3 g/dl (32.0-37.0); MEAN CORPUSCULAR VOLUME 90.8 fl (82.0-101.0); MEAN PLATELET VOLUME 11.2 fl (7.4-10.4); MONOCYTE # 0.8 10^3/ul (0.3-0.9); MONOCYTES % 6.2 % (0.0-11.0); NEUTROPHILS % 64.2 % (39.0-77.0); PLATELET COUNT 306 10^3/UL (140-415); RED BLOOD COUNT 4.44 10^6/ul (4.20-5.40); WHITE BLOOD COUNT 13.1 10^3/ul (4.8-10.8)
[2016-10-12 20:44] LABS: ADD UMIC YES; UR ASCORBIC ACID 20 mg/dL (NEGATIVE); UR BACTERIA FEW /HPF (NONE SEEN); UR BILIRUBIN (Dip) NEGATIVE (NEGATIVE); UR BLOOD (Dip) 1+ mg/dL (NEGATIVE); UR CLARITY CLEAR (CLEAR); UR COLOR YELLOW (YELLOW); UR GLUCOSE (Dip) 3+ mg/dL (NEGATIVE); UR KETONES (Dip) NEGATIVE (NEGATIVE); UR LEUKOCYTE ESTERASE (Dip) NEGATIVE Leu/ul (NEGATIVE); UR NITRITE (Dip) NEGATIVE (NEGATIVE); UR RBC 2 /HPF (0-5); UR SPECIFIC GRAVITY (Dip) 1.031 (1.003-1.030); UR SQUAMOUS EPITHELIAL CELL FEW /HPF (FEW); UR TOTAL PROTEIN (Dip) NEGATIVE (NEGATIVE); UR UROBILINOGEN (Dip) NEGATIVE (NEGATIVE)
[2016-10-12 20:57] LABS: ALBUMIN 4.5 g/dl (3.3-4.9); ALBUMIN/GLOBULIN RATIO 1.32; BILIRUBIN,INDIRECT 0.4 mg/dl (0-1.1); BILIRUBIN,TOTAL 0.4 mg/dl (0.2-1.3); CALCIUM 9.3 mg/dl (8.4-10.2); CREATININE 0.97 mg/dl (0.44-1.00); TOTAL PROTEIN 7.9 g/dl (6.1-8.1)
--- NOTE | 2016-10-12 21:36 | RADRPT ---
PROCEDURE: CT Abdomen and Pelvis without contrast. CLINICAL INDICATION: Dysuria and back pain. TECHNIQUE: A CT scan of the abdomen and pelvis was performed without intravenous contrast. Suresh l and sagittal reformatted images were generated. Images were reviewed on a high-resolution PACS wor kstation. CTDIvol: 18.69 mGy. DLP: 1001.17 mGy-cm. One or more of the following dose reduction techniques were used: - Automated exposure control. - Adjustment of the mA and/or kV according to patient size. - Use of iterative reconstruction technique. COMPARISON: 09/14/2015 FINDINGS: The lung bases are clear. Evaluation of the abdominal and pelvic viscera is limited by the lack of oral and intravenous contra st. The liver is diffusely hypodense, consistent with fatty infiltration. The gallbladder is normal in appearance. The common bile duct is not dilated. The spleen is not enlarged. No pancreatic lesion is identified and there is no pancreatic ductal dilatation. The adrenal glands are unremarkable. The kidneys are normal in size. There is no perinephric fat stranding. No hydronephrosis is seen. No urinary stone is identified. There is a 1.8 cm left renal cyst. The small and large bowel are normal in caliber. There is no bowel wall thickening. There is an appe ndicolith in the distal appendiceal lumen but no appendiceal inflammation. The urinary bladder is unremarkable. The patient is status post hysterectomy. No adnexal mass is se en. No lymphadenopathy is identified. There is no ascites. No pneumoperitoneum is seen. There are no art erial calcifications. No suspicious osseous lesion is idenitified. IMPRESSION: 1. No inflammation, mass, or lymphadenopathy. 2. Normal appendix. 3. No obstructive uropathy or urinary stone. 4. Fatty infiltration of the liver. 5. Status post hysterectomy. RPTAT: HTAR .Nahid Moore MD, Date Time Electronically viewed and signed by .Nahid Moore MD, on 10/12/2016 21:36 .R/
[2016-10-12] MEDS ORDERED: HYDR-906 PO (22:13)
== END 2016-10-12 22:31 | disposition home or self-care (01) ==
LOC: FTE 18:19
DX: M54.42 Lumbago with sciatica, left side (principal); R31.29 Other microscopic hematuria; I10 Essential (primary) hypertension; E11.9 Type 2 diabetes mellitus without complications; Z79.82 Long term (current) use of aspirin; Z79.84 Long term (current) use of oral hypoglycemic drugs
CPT/HCPCS: 74176; 80053; 81001; 85025; 96372; J1885; Z7502; Z7610; 81003

== ENCOUNTER 2017-01-04 18:42 | Emergency (ER) | payer SELFPAY ==
[~2017-01-04] VITALS: Ht 162.6 cm; Wt 79.6 kg
[~2017-01-04 18:42] MED LIST changes: +HYDR-906 PO
[2017-01-04 18:51] VITALS: Ht 162.6 cm; Wt 79.6 kg
== END 2017-01-04 20:37 | disposition left against medical advice (07) ==
LOC: FTE 18:42 → E/R 20:37
DX: Z53.21 Procedure and treatment not carried out due to patient leaving prior to being seen by health care provider (principal)

== ENCOUNTER 2017-08-20 14:35 | Observation (INO) | END 2017-08-22 14:00 | disposition home or self-care (01) ==

== ENCOUNTER 2018-01-30 17:46 | Emergency (ER) | END 2018-01-30 20:11 | disposition home or self-care (01) ==

== ENCOUNTER 2018-04-20 17:52 | Emergency (ER) | payer MEDICAID ==
[~2018-04-20] VITALS: Ht 165.1 cm; Wt 80.0 kg
[~2018-04-20 17:52] MED LIST changes: -ASPI81TA3 PO; +ASPI81TA52 PO; +ATOR40TA68 PO; +BENA20TA4 PO; -BENA5TAB2 PO; -GLIP5TAB13 PO; +HYDR-4011 PO; -HYDR-906 PO; +METF100010 PO; -METF500T4 PO; +OMEP10CA4 PO; +PRED20TA PO; -SIMV5TAB31 PO
[2018-04-20 18:08] VITALS: BP 107/55; PULSE 86; RESP 16; Ht 165.1 cm; Wt 80.0 kg
[2018-04-20] MEDS ORDERED: KETOROLAC 30 MG INJ IM STA (21:16)
[2018-04-20] MEDS ORDERED: traMADol 50 MG TAB PO ONE (21:30)
[2018-04-20] MEDS ORDERED: ACET500C5 PO (23:23)
[2018-04-20] MEDS ORDERED: NAPR-985 PO (23:23)
--- NOTE | 2018-04-21 01:48 | ERD ---
ER Documentation Chief Complaint Chief Complaint pt is bib self with c/o behind the left knee pain starting today, unk cause HPI 57 year-old [female] coming in today with Chief Complaint: Knee pain History of Present Illness: Patient reporting left posterior knee pain starting today. Unknown cause. Denies any other associated symptoms. Denies injury. Denies trauma. Review of systems: All systems were reviewed and are negative except for what is indicated in the history of present illness. Past Medical History: Diabetes, hyperlipidemia, hypertension; positive surgical history includes hysterectomy Social History: [Patient denies tobacco, alcohol, elicit drug use] Medications: [Reviewed as documented Nursing Notes] Allergies: [NKDA] Social Concerns: Denies ROS All systems reviewed and are negative except as per history of present illness. Medications Home Meds Active Scripts Acetaminophen* (Tylophen*) 500 Mg Capsule, 2 CAP PO Q6 PRN for PAIN AND OR ELEVATED TEMP, #30 CAP Prov:KESHAV BARRIOS NP 04/20/18 Naproxen* (Naprosyn*) 500 Mg Tablet, 500 MG PO BID PRN for PAIN AND/OR INFLAMMATION, #30 TAB Prov:KESHAV BARRIOS V CHIEF MERCHANDISING OFFICER 04/20/18 Hydrocodone/Acetaminophen ([place] 5-325 Tablet) 1 Each Tablet, 1 TAB PO BID PRN for PAIN, #10 TAB Prov:CAT DEL ROSARIO MD 01/30/18 Prednisone* (Prednisone*) 20 Mg Tab, 40 MG PO DAILY for 5 Days, TAB Prov:CAT DEL ROSARIO MD 01/30/18 Reported Medications Metformin Hcl* (Metformin Hcl*) 1,000 Mg Tablet, 1000 MG PO WITH BREAKFAST DINNE, #60 TAB 08/20/17 Benazepril Hcl* (Benazepril Hcl*) 20 Mg Tablet, 20 MG PO DAILY, #30 TAB 08/20/17 Atorvastatin* (Atorvastatin*) 40 Mg Tablet, 40 MG PO QHS, #30 TAB 08/20/17 Aspirin (Low Dose Aspirin) 81 Mg Tablet.dr, 81 MG PO DAILY, #30 TAB 08/20/17 Omeprazole* (Omeprazole*) 10 Mg Capsule.dr, 10 MG PO DAILY, #30 CAP 08/20/17 Allergies Allergies: Coded Allergies: No Known Drug Allergies (Verified Allergy, Unknown, 08/20/17) PMhx/Soc Medical and Surgical Hx: pt denies Surgical Hx History of Surgery: Yes (Hysterectomy) Anesthesia Reaction: No Hx Neurological Disorder: No Hx Respiratory Disorders: No Hx Cardiac Disorders: Yes (HTN) Hx Psychiatric Problems: No Hx Miscellaneous Medical Probl: Yes (DM,Dyslipidemia) Hx Alcohol Use: No Hx Substance Use: No Hx Tobacco Use: No Smoking Status: Never smoker FmHx Family History: diabetes, coronary disease Physical Exam Vitals Vital Signs Date Temp Pulse Resp B/P (MAP) Pulse Ox O2 O2 Flow FiO2 Time Delivery Rate 04/20/18 98.3 86 16 107/55 99 18:08 (72) Physical Exam Const: No acute distress Head: Atraumatic Eyes: Normal Conjunctiva ENT: Normal External Ears, Nose and Mouth. Neck: Full range of motion. No meningismus. Resp: Clear to auscultation bilaterally Cardio: Regular rate and rhythm, no murmurs Abd: Soft, non tender, non distended. Normal bowel sounds Skin: No petechiae or rashes Back: No midline or flank tenderness Ext: No cyanosis, or edema. Tenderness noted to posterior left knee, no erythema, no warmth, mild swelling, no fluctuance. Neur: Awake and alert Psych: Normal Mood and Affect Results 24 hrs Current Medications Medications Dose Sig/Jak Start Time Status Last (Trade) Ordered Route PRN Stop Time Admin Dose Reason Admin Ketorolac 30 mg ONCE STAT 04/20/18 DC 04/20/18 Tromethamine IM 21:16 04/20/18 21:25 (Toradol) 21:18 Tramadol 50 mg ONCE ONCE 04/20/18 DC 04/20/18 HCl PO 21:30 04/20/18 21:25 (Ultram) 21:31 Procedures/MDM ED course includes a thorough examination and history. ED course includes medication; ketorolac for inflammation and tramadol for pain. ED course includes imaging; left knee xray. Low suspicion for life-threatening medical emergency or orthopedic emergency. Otherwise healthy patient presenting with constellation of symptoms likely representing uncomplicated left posterior knee pain as characterized by history, physical exam findings [radiologic]. ---- knee IMPRESSION: No acute bony abnormality identified in the left knee. Tricompartmental degenerative changes. Likely intra-articular loose body has migrated to the posterior aspect of the knee joint. Patellar bone spur. ----- Patient reassessment at 2330. Patient with mild relief of pain. No physical signs of pain, no grimacing, vital signs stable. Cayden wrap in place. Patient educated on R ICE. Patient neurovascularly intact after Cayden wrap. Strict follow-up if pain persists. No respiratory distress, otherwise relatively well appearing and nontoxic. Patient educated on diagnoses, prescriptions, follow-up care, return precautions. Strict return precautions given for worsening condition; questions answered discharge. Disposition for discharge with followup in 2-3 days with PCP/clinic. Departure Diagnosis: Primary Impression: Knee pain Additional Impression: Knee injury Condition: Stable Patient Instructions: Knee Pain, Uncertain Cause [facility] Usted se clayton hecho un examen mdico de control que le indica que no est en levi condicin que requiera tratamiento urgente en el Departamento de Emergencia. Un estudio ms profundo y el tratamiento de spring condicin pueden esperar sin ningn riesgo hasta que usted sea atendida/o en el consultorio de spring mdico o levi clnica. Es responsabilidad suya arreglar levi patrick para el seguimiento del praveen. MANEJO DE CONDICIONES NO URGENTES EN EL FUTURO 1) Si usted tiene un mdico de atencin primaria: Usted debera llamar a spring mdico de atencin primaria antes de venir al departamento de emergencia. Despus de las horas de consultorio, spring doctor o spring asociado/a est disponible por telfono. El mdico o enfermero de kings en el servicio telefnico puede asesorarle por paula medio para atender el problema, o praveen contrario se puede programar levi patrick. 2) Si usted no tiene un mdico de atencin primaria: Llame al mdico o clnica de referencia que aparece abajo mily las horas de consultorio para hacer levi patrick para que le vean. CLINICAS: [facility] [phone] [facility] [phone] [place] [facility] [phone] [facility] [phone] [facility] [phone] [facility]. [phone] [address] [facility] () Usted se clayton hecho un examen mdico de control que le indica que no est en levi condicin que requiera tratamiento urgente en el Departamento de Emergencia. Un estudio ms profundo y el tratamiento de spring condicin pueden esperar sin ningn riesgo hasta que usted sea atendida/o en el consultorio de spring mdico o levi clnica. Es responsabilidad suya arreglar levi patrick para el seguimiento del praveen. MANEJO DE CONDICIONES NO URGENTES EN EL FUTURO 1) Si usted tiene un mdico de atencin primaria: Usted debera llamar a spring mdico de atencin primaria antes de venir al departamento de emergencia. Despus de las horas de consultorio, spring doctor o spring asociado/a est disponible por telfono. El mdico o enfermero de kings en el servicio telefnico puede asesorarle por paula medio para atender el problema, o praveen contrario se puede programar levi patrick. 2) Si usted no tiene un mdico de atencin primaria: Llame al mdico o condado institucions de referencia que aparece abajo mily las horas de consultorio para hacer levi patrick para que le vean. SI USTED NO PUEDE PAGAR PARA MAXINE UN MEDICO puede ir a: [facility] [address] [place] [address] [facility] [address] [place] [address] [facility] [address] [place] [address] [facility] [address] [place], [place] [phone] Additional Instructions: Call your primary care doctor TOMORROW for an appointment during the next 2-3 days.See the doctor sooner or return here if your condition worsens before your appointment time. Return to ER if any signs and symptoms of infection, redness, warmth, increased swelling, fever, chills. KESHAV BARRIOS NP Apr 21, 2018 01:48
== END 2018-04-20 23:35 | disposition home or self-care (01) ==
LOC: FTE 17:52
DX: S89.92XA Unspecified injury of left lower leg, initial encounter (principal); I10 Essential (primary) hypertension; E11.9 Type 2 diabetes mellitus without complications; X58.XXXA Exposure to other specified factors, initial encounter; Y92.9 Unspecified place or not applicable; Z79.82 Long term (current) use of aspirin; Z79.84 Long term (current) use of oral hypoglycemic drugs
CPT/HCPCS: 73562; J1885; Z7610; 96372

== ENCOUNTER 2018-07-22 12:24 | Emergency (ER) | payer MEDICAID ==
[~2018-07-22] VITALS: Ht 157.5 cm; Wt 78.0 kg
[~2018-07-22 12:24] MED LIST changes: +ACET500C5 PO; +NAPR-985 PO
[2018-07-22 12:29] VITALS: BP 173/83; PULSE 96; RESP 18; Ht 157.5 cm; Wt 78.0 kg
[2018-07-22] MEDS ORDERED: DIPHENHYDRAMINE 50 MG INJ IM ONE (14:00)
[2018-07-22] MEDS ORDERED: FAMOTIDINE 20 MG TAB PO ONE (14:00)
[2018-07-22] MEDS ORDERED: predniSONE 20 MG TAB PO ONE (14:00)
[2018-07-22] MEDS ORDERED: BEN50 PO (14:41)
[2018-07-22] MEDS ORDERED: PRED20TA PO (14:41)
--- NOTE | 2018-07-22 14:44 | ERD ---
ER Documentation Chief Complaint Chief Complaint ITCHY RASH ON TOTAL BODY AFTER TAKING METFORMIN TODAY , NO SOB HPI 58 female presents with complaint of itchiness and rash starting this morning. Denies any wheezing, vomiting, shortness of breath, lightheadedness, new medications, new soaps, stridor, fevers. Denies any treatments. ROS All systems reviewed and are negative except as per history of present illness. Medications Home Meds Active Scripts Prednisone* (Prednisone*) 20 Mg Tab, 60 MG PO DAILY for 4 Days, TAB Prov:VALENTE CANALES 07/22/18 Diphenhydramine Hcl* (Benadryl*) 50 Mg Cap, 50 MG PO Q6H PRN for ITCHING/RASH, #30 CAP Prov:VALENTE CANALES 07/22/18 Acetaminophen* (Tylophen*) 500 Mg Capsule, 2 CAP PO Q6 PRN for PAIN AND OR ELEVATED TEMP, #30 CAP Prov:KESHAV BARRIOS V VP CLINICAL 04/20/18 Naproxen* (Naprosyn*) 500 Mg Tablet, 500 MG PO BID PRN for PAIN AND/OR INFLAMMATION, #30 TAB Prov:KESHAV BARRIOS V VP CLINICAL 04/20/18 Hydrocodone/Acetaminophen ([place] 5-325 Tablet) 1 Each Tablet, 1 TAB PO BID PRN for PAIN, #10 TAB Prov:CAT DEL ROSARIO MD 01/30/18 Prednisone* (Prednisone*) 20 Mg Tab, 40 MG PO DAILY for 5 Days, TAB Prov:CAT DEL ROSARIO MD 01/30/18 Reported Medications Metformin Hcl* (Metformin Hcl*) 1,000 Mg Tablet, 1000 MG PO WITH BREAKFAST DINNE, #60 TAB 08/20/17 Benazepril Hcl* (Benazepril Hcl*) 20 Mg Tablet, 20 MG PO DAILY, #30 TAB 08/20/17 Atorvastatin* (Atorvastatin*) 40 Mg Tablet, 40 MG PO QHS, #30 TAB 08/20/17 Aspirin (Low Dose Aspirin) 81 Mg Tablet.dr, 81 MG PO DAILY, #30 TAB 08/20/17 Omeprazole* (Omeprazole*) 10 Mg Capsule.dr, 10 MG PO DAILY, #30 CAP 08/20/17 Allergies Allergies: Coded Allergies: No Known Drug Allergies (Verified Allergy, Unknown, 08/20/17) PMhx/Soc History of Surgery: Yes (Hysterectomy) Anesthesia Reaction: No Hx Neurological Disorder: No Hx Respiratory Disorders: No Hx Cardiac Disorders: Yes (HTN) Hx Psychiatric Problems: No Hx Miscellaneous Medical Probl: Yes (DM,Dyslipidemia) Hx Alcohol Use: No Hx Substance Use: No Hx Tobacco Use: No Smoking Status: Never smoker FmHx Family History: No diabetes, No coronary disease, No other Physical Exam Vitals Vital Signs Date Temp Pulse Resp B/P (MAP) Pulse Ox O2 O2 Flow FiO2 Time Delivery Rate 07/22/18 97.8 96 18 173/83 97 12:29 (113) Physical Exam Const: No acute distress Head: Atraumatic Eyes: Normal Conjunctiva ENT: Normal External Ears, Nose and Mouth. Tonsils are nonedematous. Tongue is not edematous. There is no angioedema. Airway is patent. There is no stridor. Neck: Full range of motion. No meningismus. Resp: Clear to auscultation bilaterally Cardio: Regular rate and rhythm, no murmurs Abd: Soft, non tender, non distended. Normal bowel sounds Skin: Urticaria's rash noted over arms and stomach bilaterally. Back: No midline or flank tenderness Ext: No cyanosis, or edema Neur: Awake and alert Psych: Normal Mood and Affect Results 24 hrs Current Medications Medications Dose Sig/Jak Start Time Status Last (Trade) Ordered Route PRN Stop Time Admin Dose Reason Admin 50 mg ONCE ONCE 07/22/18 DC 07/22/18 Diphenhydrami IM 14:00 07/22/18 13:50 ne HCl 14:01 (Benadryl) Prednisone 60 mg ONCE ONCE 07/22/18 DC 07/22/18 (Prednisone) PO 14:00 07/22/18 13:49 14:01 Famotidine 40 mg ONCE ONCE 07/22/18 DC 07/22/18 (Pepcid) PO 14:00 07/22/18 13:49 14:01 Procedures/MDM MDM: Patients presentation is consistent with allergic reaction. Patient treated with prednisone, pepcid, and benadryl. Patient discharged with 4 day course of prednisone and benadryl. At no time during the ER course did patient exhibit signs of anaphylaxis, respiratory distress, or angioedema. Patient's vitals were WNL throughout the ER course at time of discharge. Patient discharged with strict ER precauctions. Patient advised to follow up with PMD. All questions answered at discharge. Departure Diagnosis: Primary Impression: Allergic reaction Condition: Stable Patient Instructions: First Aid: Allergic Reactions Referrals: [facility] (PCP) Additional Instructions: FOLLOW UP WITH YOUR PRIMARY CARE PHYSICIAN TOMORROW.Return to this facility if you are not improving as expected. VALENTE CANALES Jul 22, 2018 14:44
== END 2018-07-22 14:56 | disposition home or self-care (01) ==
LOC: FTE 12:24
DX: R21 Rash and other nonspecific skin eruption (principal); T38.3X5A Adverse effect of insulin and oral hypoglycemic [antidiabetic] drugs, initial encounter; E11.9 Type 2 diabetes mellitus without complications; I10 Essential (primary) hypertension; Z79.82 Long term (current) use of aspirin; Z79.84 Long term (current) use of oral hypoglycemic drugs
CPT/HCPCS: 96372; J1200; J7512; Z7502; Z7610

== ENCOUNTER 2018-10-13 15:49 | Emergency (ER) | payer MEDICAID ==
[~2018-10-13] VITALS: Ht 165.1 cm; Wt 76.7 kg
[~2018-10-13 15:49] MED LIST changes: +BEN50 PO; +RANI150T35 PO; +TR1B60 TOP
[2018-10-13 15:52] VITALS: BP 142/81; PULSE 102; RESP 16; Ht 165.1 cm; Wt 76.7 kg
== END 2018-10-13 17:40 | disposition home or self-care (01) ==
LOC: FTE 15:49
DX: L56.8 Other specified acute skin changes due to ultraviolet radiation (principal); I10 Essential (primary) hypertension; E11.9 Type 2 diabetes mellitus without complications; X32.XXXA Exposure to sunlight, initial encounter; Z79.84 Long term (current) use of oral hypoglycemic drugs; Z79.82 Long term (current) use of aspirin
CPT/HCPCS: 99283

== ENCOUNTER 2018-11-15 16:40 | Emergency (ER) | payer MEDICAID ==
[~2018-11-15] VITALS: Ht 160 cm; Wt 77.8 kg
[~2018-11-15 16:40] MED LIST changes: +FAMO-96 PO; +HC30CR25 TOP; +LOPE2CAP PO; +MELO15TA30 PO; -OMEP10CA4 PO; +OMEP10CA5 PO; +ONDA4TAB14 PO; +RANI-535 PO; -RANI150T35 PO
[2018-11-15 17:02] VITALS: Ht 160 cm; Wt 77.8 kg
[2018-11-15] MEDS ORDERED: hydrOXYzine HCL 10 MG TAB PO ONE (20:00)
[2018-11-15] MEDS ORDERED: FAMOTIDINE 20 MG TAB PO ONE (20:00)
[2018-11-15] MEDS ORDERED: DEXAMETHASONE 10 MG/ML 1 ML INJ IM ONE (20:00)
[2018-11-15 20:53] VITALS: BP 151/74; PULSE 89; RESP 16
== END 2018-11-15 20:52 | disposition home or self-care (01) ==
LOC: FTE 16:40
DX: L50.9 Urticaria, unspecified (principal); I10 Essential (primary) hypertension; E11.9 Type 2 diabetes mellitus without complications; Z79.82 Long term (current) use of aspirin; Z79.84 Long term (current) use of oral hypoglycemic drugs
CPT/HCPCS: 96372; J1100; Z7502; Z7610

== ENCOUNTER 2018-12-14 19:23 | Emergency (ER) | payer MEDICAID ==
[~2018-12-14] VITALS: Ht 157.5 cm; Wt 76.0 kg
[~2018-12-14 19:23] MED LIST changes: -LOPE2CAP PO; -ONDA4TAB14 PO
[2018-12-14 19:29] VITALS: Ht 157.5 cm; Wt 76.0 kg
[2018-12-14] MEDS ORDERED: KETOROLAC 15 MG INJ IV STA (20:12)
[2018-12-14] MEDS ORDERED: FAMOTIDINE 20 MG INJ IV ONE (20:30)
[2018-12-14] MEDS ORDERED: SOD CHLORIDE 0.9% 1,000 ML IV ONE (20:30)
[2018-12-14] MEDS ORDERED: HYDROCODONE/APAP (5/325) TAB PO ONE (20:30)
[2018-12-14 23:22] VITALS: BP 120/59; PULSE 69; RESP 20
== END 2018-12-14 23:23 | disposition home or self-care (01) ==
LOC: FTE 19:23
DX: R30.9 Painful micturition, unspecified (principal); R30.0 Dysuria; R39.15 Urgency of urination; R35.0 Frequency of micturition; E11.9 Type 2 diabetes mellitus without complications; R10.9 Unspecified abdominal pain; I10 Essential (primary) hypertension; Z79.82 Long term (current) use of aspirin; Z79.84 Long term (current) use of oral hypoglycemic drugs
CPT/HCPCS: 36415; 74176; 80053; 81001; 85025; 96374; 96375; J1885; J7030; Z7502; Z7610; 81003